=== PATIENT | male | born 1955 | race Caucasian/White ===

== ENCOUNTER → 2017-06-06 | Outpatient (CLI) | payer BC ==
--- NOTE | 2017-06-06 13:08 | PCVCIMAG ---
APPROVED REPORT Exam: Stress Echocardiogram Indication: Chest pain , Hyperlipidemia Stress Nurse: Radha Peralta RN Status: routine HR: 64 bpm Rhythm: NSR Procedure The patient underwent an Exercise Stress Test using the Salas Protocol. Blood pressure, heart rate, and EKG were monitored. An Echocardiogram was performed by technician telecommunication systems in four stages in quad fashion. At peak stress, four selected images were obtained and placed side by side with resting images for comparison. Stress Test Details Stress Test: Exercise stress testing was performed using a Salas protocol. HR Resting HR: 64 bpmMax Heart Rate (APMHR): 157 bpm Max HR Achieved: 148 bpmTarget HR (85% APMHR): 133 bpm % of APMHR: 94 Recovery HR: 77 bpm HR response to stress: Normal HR response to stress BP Resting BP: 134/72 mmHg Max BP: 158/72 mmHg Recovery BP: 120/70 mmHg ECG Resting ECG: Sinus Rhythm Stress ECG: Sinus Rhythm ST Change: Horizontal ST depression Maximum ST Deviation: 2 mm Arrhythmia: Frequent isolated PVCs Recovery ECG: Sinus Rhythm Recovery Arrhythmia: Isolated PVCs Clinical Reason for Termination: Dyspnea Stress Symptoms: Chest pain Exercise duration: 10 min 34 sec Highest Stage Achieved: Stage 4: 4.2 mph at 16% grade. Exercise capacity: 13.6 METs Overall Exercise Capacity for Age: Normal Stress ECG Conclusion 1. SUBJECTIVELY ABNORMAL WITH DEVELOPMENT OF CHEST PAINS 2. ELECTROCARDIOGRAPHICALLY ABNORMAL BUT BASELINE CHANGES WERE PRESENT 3. SATISFACTORY FUNCTIONAL CAPACITY Pre-Stress Echo The resting Echocardiogram showed normal left ventricular contractility with an estimated Ejection Fraction of about >55%. Normal wall motion in all segments on baseline images. Post-Stress Echo Normal augmentation of wall motion in all segments on post stress images. Clinical Ischemic inferior and lateral ST depression Conclusion Clinical Response: Ischemic Stress ECG Response: Ischemic 1. INTERMEDIATE RISK STUDY BASED ON NONECHOCARDIOGRAPHIC FINDINGS Other Information Study Quality: Adequate <Conclusion> 1. INTERMEDIATE RISK STUDY BASED ON NONECHOCARDIOGRAPHIC FINDINGS
== END | disposition home or self-care (01) ==
LOC: PCVCIMAG 11:18
PROVIDERS: ATTEND Internal Medicine
DX: I49.3 Ventricular premature depolarization (principal); R94.31 Abnormal electrocardiogram [ECG] [EKG]
CPT/HCPCS: 93325; 93351